=== PATIENT | male | born 1970 | race Caucasian/White ===

== ENCOUNTER 2017-05-24 11:16 | Emergency (ER) | payer OTHER ==
[~2017-05-24] VITALS: Ht 182.9 cm; Wt 147.1 kg
[~2017-05-24 11:16] MED LIST: PERCOCET 5/31 TABLET PO
[2017-05-24] MEDS ORDERED: PREDNISONE10 MG PO (13:39)
[2017-05-24] MEDS ORDERED: LORTAB 10-3251 EACH PO (13:39)
[2017-05-24] MEDS ORDERED: FLEXERIL10 MG PO (13:39)
[2017-05-24 15:32] VITALS: BP 113/63
== END 2017-05-24 15:33 | disposition home or self-care (01) ==
LOC: EME 11:16
DX: M54.42 Lumbago with sciatica, left side (principal); G89.29 Other chronic pain
CPT/HCPCS: J1100; J2270; J3010

== ENCOUNTER 2017-05-25 23:27 | Inpatient (IN) | payer OTHER ==
[~2017-05-25] VITALS: Ht 182.9 cm; Wt 147.2 kg
[~2017-05-25 23:27] MED LIST changes: +FLEXERIL10 MG PO; +LORTAB 10-3251 EACH PO; +PREDNISONE10 MG PO
[2017-05-26 03:11] VITALS: BP 134/80
[2017-05-26 08:36] VITALS: BP 121/67
[2017-05-26] MEDS ORDERED: ALEVE220 MG PO (11:30)
[2017-05-26] MEDS ORDERED: ADVIL200 MG PO (11:31)
[2017-05-26] MEDS ORDERED: CYCLOBENZAPRINE10 MG PO (11:36)
[2017-05-26] MEDS ORDERED: PREDNISONE10 MG PO (11:37)
[2017-05-26 16:31] VITALS: BP 132/74
[2017-05-26 19:00] VITALS: BP 109/55
[2017-05-27] VITALS (7 sets, daily range): BP systolic 100–132; BP diastolic 56–78
[2017-05-28] VITALS (7 sets, daily range): BP systolic 115–136; BP diastolic 66–81
[2017-05-28 01:08] LABS: EOSINOPHIL (%) 0.7 % (0-5); EOSINOPHIL COUNT 0.1 K/uL (0-0.3); HEMATOCRIT 45.3 % (38.0-50.0); IMMATURE GRANULOCYTE (%) 0.4 % (0.0-0.7); INSTRUMENT ABS NEUTROPHIL CT 3.9 K/uL; LYMPHOCYTE COUNT 2.2 K/uL (1.0-2.8); MCH 30.5 PG (29.0-34.0); MCHC 34.2 G/DL (30.0-36.0); MCV 89.2 FL (86-99); MEAN PLAT.VOLUME 9.6 uM^3 (9.0-12.4); MONOCYTE (%) 9.7 % (3-12); MONOCYTE COUNT 0.7 K/uL (0-0.8); NEUTROPHIL (%) 57.1 % (45-76); NEUTROPHIL COUNT 3.9 K/uL (1.8-6.4); PLATELET COUNT 259 K/uL (156-360); RBC DIS.WIDTH-CV 12.4 % (11.8-14.6); RED BLOOD COUNT 5.08 M/uL (4.00-5.50); WHITE BLOOD COUNT 6.8 K/uL (4.1-10.2)
[2017-05-28 01:15] LABS: CHLORIDE 102 mEq/L (99-109); POTASSIUM 3.5 mEq/L (3.7-5.4); SODIUM 140 mEq/L (136-147)
[2017-05-28 01:16] LABS: GLUCOSE 91 mg/dL (70-99)
[2017-05-28 01:18] LABS: ANION GAP 9 MEQ/L (2-14)
[2017-05-28 01:20] LABS: GFR ESTIMATE (CALCULATED) > 59 mL/min/
[2017-05-28 01:21] LABS: UREA NITROGEN (BUN) 20 mg/dL (9-23)
[2017-05-29 03:45] VITALS: BP 99/55
[2017-05-29 07:42] VITALS: BP 116/63
== END 2017-05-29 11:34 | disposition home or self-care (01) | DRG 519 ==
LOC: EME 23:27 → EDOF 05-26 02:03 → 5WEST 05-26 02:03 → EDOF 05-26 02:03 → ENRESERV 05-26 02:05 → 5WEST 05-26 03:00 → ENRESERV 05-27 11:42 → 5WEST 05-28 15:42 → ENRESERV 05-28 17:45 → 3EAST 05-28 19:46
PROVIDERS: Anesthesiology
DX: M51.17 Intervertebral disc disorders with radiculopathy, lumbosacral region (principal); M51.26 Other intervertebral disc displacement, lumbar region; E66.01 Morbid (severe) obesity due to excess calories; G89.29 Other chronic pain; Z68.41 Body mass index [BMI] 40.0-44.9, adult; G54.4 Lumbosacral root disorders, not elsewhere classified; R33.9 Retention of urine, unspecified
CPT/HCPCS: 72100; 72148; 72158; 76000; 80048; 85025; 93005; 99281; 99285; J0330; J0690; J1100; J1170; J1650; J1885; J2250; J2270; J2930; J3010; J3370; J3480; S0020